=== PATIENT | male | born 1990 | race African-American/Black ===

== ENCOUNTER 2019-04-15 12:03 | Emergency (ER) | payer MEDICAID, OTHER ==
[~2019-04-15] VITALS: Ht 177.8 cm; Wt 113.0 kg
[~2019-04-15 12:03] MED LIST: KEPP250; RISP2TAB53
[2019-04-15 12:56] VITALS: BP 116/69
== END 2019-04-15 14:07 | disposition left against medical advice (07) ==
LOC: ER 12:03
DX: Z53.21 Procedure and treatment not carried out due to patient leaving prior to being seen by health care provider (principal)